=== PATIENT | male | born 1940 | race Caucasian/White ===

== ENCOUNTER 2024-05-12 17:07 | Emergency (ER) | payer MEDICARE, SELFPAY ==
[2024-05-12 17:09] VITALS: BP 176/84
[2024-05-12 17:25] LABS: % Basophils 0.7 % (0-2); % Eosinophils 5.5 % (0-6); % Immature Granulocytes 0.5 % (0-0.5); % Monocytes 10.8 % (1.7-9.3); % Neutrophils 60.5 % (42.2-75.2); Absolute Eosinophils 0.3 10^3/uL (0-0.7); Absolute Lymphocytes 1.3 10^3/uL (1.2-3.4); Absolute Monocytes 0.6 10^3/uL (0.1-0.6); Absolute Neutrophils 3.5 10^3/uL (1.4-6.5); Hematocrit 43.6 % (39.0-52.0); Mean Corp Hgb Conc. 34.4 g/dL (33.0-37.0); Mean Corpuscular Hgb 32.9 pg (27.0-31.0); Mean Corpuscular Volume 95.6 fL (80.0-94.0); Mean Platelet Volume 9.3 fL (7.4-10.4); Nucleated Red Blood Cells % 0 % (-); Platelet Count 196 10^3/uL (130-400); Red Blood Cell Count 4.56 10^6/uL (4.70-6.10); Red Cell Dist. Width 13.1 % (11.5-14.5); White Blood Cell Count 5.8 10^3/uL (4.8-10.8)
[2024-05-12 17:40] LABS: ALT (SGPT) 18 U/L (0-50); AST (SGOT) 27 U/L (17-59); Albumin 4.3 g/dl (3.5-5.0); Alkaline Phosphatase 72 U/L (38-126); Blood Urea Nitrogen 19 mg/dl (9-20); Calcium 9.4 mg/dl (8.4-10.2); Carbon Dioxide 26 mmol/L (22-30); Chloride 101 mmol/L (98-107); Glucose 92 mg/dl (70-99); Potassium 4.3 mmol/L (3.5-5.1); Sodium 134 mmol/L (135-145); Total Bilirubin 0.7 mg/dl (0.2-1.3); Total Protein 6.7 g/dl (6.3-8.2); eGFR > 60.00
[2024-05-12 17:54] VITALS: BMI 23.6
[2024-05-12 18:03] VITALS: BP 142/76
--- NOTE | 2024-05-12 18:09 | ED.GENMED ---
History of Present Illness
General
Chief Complaint: Abdominal Symptoms
Source: patient
Exam Limitations: none
Time Seen by Provider: 05/12/24 17:56
History of Present Illness
History of Present Illness:
This is a 83 year old male that comes in with c/o mucous diarrhea. States that he has been having this mucous watery flatulence for the past 3 weeks. States that he is going 30 times daily. States that he went to and was told to come to the ER
for evaluation. States that he has been using [employer] due to all the gas. States that he has a history of Ulcerative Colitis. States that when he has a BM there is some blood in the morning and the it is better after that. Denies any fever, chills,
chest pain, SOB, abd pain, nausea, vomiting, headache, dizziness, urinary burning.
Past History
Past History
ED Past Medical History: CAD, GERD, HTN, Hypercholesterolemia, Seizures and Other (esophageal stricture, PVCs, Tiingling arms and legs, PNA, Colitis, GI bleeding, Diverticulitis)
ED Past Surgical History: Cardiac (stent, Triple Bypass), Orthopedic (Back surgery), Tonsilectomy and Other (Esophageal dilatation)
Social History
Tobacco: Former smoker
Alcohol: None
Drug: None
Personal:
Living: with family
Employment: Retired
Family History
Family History: Hypertension
Review of Systems
Review of Systems
All Other Systems: ROS reviewed and negative except as documented in HPI and ROS
Constitutional: Reports no symptoms; Denies fever or chills
EENT: Reports no symptoms
Respiratory: Reports no symptoms; Denies cough or trouble breathing
Cardiac: Denies no symptoms or chest pain
ABD/GI: Reports other (Mucous watery flatulence); Denies abdominal pain, nausea or vomiting
: Reports no symptoms; Denies dysuria, frequency or urgency
Musculoskeletal: Reports no symptoms
Skin: Reports no symptoms
Neurological: Reports no symptoms; Denies dizzy or headache
Psychiatric: Reports no symptoms
Phy Exam
General Physical Exam
General Presentation: well appearing and no apparent distress
General age: appears stated age
General Skin: warm and dry
General Habitus: elderly
General Mental: alert
General Hydration: appears well hydrated
ENT Exam
ENT Exam: pharynx normal and neck supple
Eye Exam
Eye Exam: EOMI
Cardiovascular Exam
Cardiovascular Exam: regular rate/rhythm, no edema, no murmur and normal peripheral pulses
Pulmonary Exam
Pulmonary Exam: lungs clear, no respiratory distress, no rales, chest non tender, no crackles, no rhonchi, no wheezing and no cough
Gastrointestinal Exam
Gastrointestinal Exam: normal bowel sounds, non tender, soft, no organomegaly, no pulsatile mass and non distended
Musculoskeletal Exam
Musculoskeletal Exam: full ROM and no edema
Skin Exam
Skin Exam: normal color, warm/dry, no rash and no petechia
Psychiatric Exam
Psychiatric Exam: normal mood/affect
Course
Orders/Labs/Results
Orders:
Orders
05/12/24 17:20
Complete Blood Count/With Diff Urgent
Comprehensive Metabolic Panel Urgent
05/12/24 18:09
Iohexol [Omnipaque] See Protocol PO NOW STA
05/12/24 18:10
CT Abd/pel W Iv And Oral Contr Urgent
Comment:
Reason For Exam: Mucous diarrea, history of colitis
STOOL [C difficile Antigen & Toxins] Urgent
CASANDRA Source: Feces/Stool
Specimen Description:
Stool Culture Urgent
CASANDRA Source: Feces/Stool
Specimen Description:
Stool For WBC Urgent
CASANDRA Source: Feces/Stool
Specimen Description:
0.9% Sodium Chloride 500 ml [Nss] 500 ml IV BOLUS
Abnormal Lab Results
05/12/24
17:20
RBC 4.56 L 10^6/uL
(4.70-6.10)
MCV 95.6 H fL
(80.0-94.0)
MCH 32.9 H pg
(27.0-31.0)
Monocytes % 10.8 H %
(1.7-9.3)
Sodium 134 L mmol/L
(135-145)
05/12/24 17:20
05/12/24 17:20
Anemia, Sodium very slighty low
Vital Signs
Initial and Last Documented VS:
Initial Vital Signs
Temp Pulse Resp BP Pulse Ox
97.6 F 62 18 176/84 98
05/12/24 17:09 05/12/24 17:09 05/12/24 17:09 05/12/24 17:09 05/12/24 17:09
Last Documented Vital Signs
Temp Pulse Resp BP Pulse Ox
97.6 F 52 11 172/72 99
05/12/24 17:09 05/12/24 20:30 05/12/24 20:30 05/12/24 20:00 05/12/24 18:03
MDM/Problems Addressed
Differential Diagnosis Includes:
Ulcerative colitis, Diverticulitis,
MDM/Problems Addressed:
This is a 83 year old male that comes in with c/o watery mucous flatulence for the past 3 weeks. States that he can't control this. States that in the morning when he has a BM his stool has some blood and then it goes away. Patient went to and
was told to come here for evaluation.
Will get labs and CT scan.
Back into see patient. Explained that his CT is negative for any acute process. There is a left inguinal fat filled hernia, 2 hiatal hernias small and Renal cyst that will need further evaluation in 6 months. Patient will need to see the GI
specialist for further evaluation. Patient to return with any concerns.
Chronic conditions affecting care:
Ulcerative colitis, Diverticulitis
*Radiology
Radiology exam reviewed: radiology read reviewed (CT-Oral contrast only opacifiying stomach and unremarkable proximal to mid small bowel. Distal small bowel and entire large bowel not opacified with oral contrast, limited. Moderate to large volume
widespread colonic stool. Sigmoid diverticulosis. NO intestinal obstruction, gross pericolonic) and all reviewed NAD by ED Provider (CT cont- pericolonic inflammatory changes or free air. Small fat only containing left inguinal hernia. Several small
bilateral renal cyst largest left 3cm with thin septations and calcifiations. Follow-up CT could be obtained, perhaps in 6 months, to confirm stability. 2 Small hiatal hernia. )
*Pulse Oximetry
Patient hypoxic: no
*EKG
Interpreted by ED Provider?: NA
Rate: EKG- N/A
*Recordist Interpretation
Rate: Recordist- N/A
*Critical Care Note
Total Time (30-74mins, 75-104mins- exclusive of procedures): Not Applicable
ED Attending Note
-
Portions of this chart may have been created with voice recognition software.� Occasional wrong word or��sound alike� substitutions may have occurred due to the inherent limitations of voice recognition software.
Discharge Plan
Departure
Patient Disposition: Home (Routine Discharge)
Date of Disposition: 05/12/24
Time of Disposition: 21:21
Patient with high blood pressure during this ER visit?: Yes
Condition: Good
Covid-19: Not Applicable
Discharge Problem:
Mucous rectal discharge
Instructions: Abdominal Pain
Prescriptions:
No Action
lisinopril 20 MG tablet
20 mg PO BID
prednisone 10 mg tablet
20 mg PO DAILY
pravastatin 40 mg tablet
40 mg PO HS
famotidine 40 mg tablet
40 mg PO HS
Eliquis 5 mg Tablet
5 mg PO BID Qty: 60 0RF
amiodarone [Pacerone] 200 mg Tablet
200 mg PO BID Qty: 60 0RF
Rx Instructions:
take twice a day for 30 days then dose will be reduced to once a day
Referrals:
Arron Chaevz MD [Family Provider] -
Leia Kamara MD [Active] - Follow up in 2-3 days
Activity Restrictions/Additional Instructions:
As discussed, your CT is negative for any acute process. You have a left inguinal hernia. There are 2 small hiatal hernia's and renal cyst that will need a follow up CT in 6 months for recheck. There is no sign of inflammatory process. Please follow
up with the GI specialist for further evaluation. IF YOU HAVE ABD PAIN, FEVER, OR ANY OTHER CONCERNS PLEASE RETURN TO THE EMERGENCY ROOM.
Interventions
Interventions:
*Risk Screen - Suicide Last Done: 05/12/24 17:09
*General Assessment Last Done: 05/12/24 17:09
*Neglect/Abuse Screening Last Done: 05/12/24 17:09
ED- Fall Risk Assessment Last Done: 05/12/24 17:54
*ED COVID-19 Vaccine History Last Done: 05/12/24 17:54
NL-Cxxtlo-Warhxookbv Assessment Last Done: 05/12/24 17:54
Discharge Date and Time
Print Language: AUSTRIAN
[2024-05-12] MEDS: NSS 500 IV (18:25)
[2024-05-12] MEDS: OMNIPAQUE 50 ML PO (18:25)
[2024-05-12 19:00] VITALS: BP 157/69
[2024-05-12 20:00] VITALS: BP 172/72
[2024-05-12 21:36] VITALS: BP 184/82
== END 2024-05-12 22:21 | disposition home or self-care (01) ==
LOC: EMR 17:07
PROVIDERS: Emergency Medicine; EMERGENCY PHYSICIAN Emergency Medicine; FAMILY PHYSICIAN Family Medicine
DX: R19.5 Other fecal abnormalities (principal); K57.30 Diverticulosis of large intestine without perforation or abscess without bleeding; N28.1 Cyst of kidney, acquired; K40.90 Unilateral inguinal hernia, without obstruction or gangrene, not specified as recurrent; K51.90 Ulcerative colitis, unspecified, without complications; K44.9 Diaphragmatic hernia without obstruction or gangrene; I25.10 Atherosclerotic heart disease of native coronary artery without angina pectoris; E78.00 Pure hypercholesterolemia, unspecified; K21.9 Gastro-esophageal reflux disease without esophagitis; I10 Essential (primary) hypertension; R56.9 Unspecified convulsions; K52.9 Noninfective gastroenteritis and colitis, unspecified; Z79.01 Long term (current) use of anticoagulants; Z95.5 Presence of coronary angioplasty implant and graft; Z95.1 Presence of aortocoronary bypass graft; Z87.891 Personal history of nicotine dependence; Z87.01 Personal history of pneumonia (recurrent)
CPT/HCPCS: 99285; 96360; 74177; 80053; 85025; 87045; 87046; 87324; 87427; 87449; 89055; Q9967